=== PATIENT | male | born 1975 | race Caucasian/White ===

== ENCOUNTER 2018-11-03 10:00 | Emergency (ER) | payer MEDICARE, MEDICAID ==
[~2018-11-03] VITALS: Ht 167.6 cm; Wt 80.7 kg
[2018-11-03 10:50] LABS: BASOPHILS % (AUTO) 0.6 % (0.0-2.0); EOSINOPHILS % (AUTO) 1.4 % (0.0-6.0); HEMATOCRIT 42 % (39-51); LYMPHOCYTES # (AUTO) 0.8 /CMM (0.8-4.8); LYMPHOCYTES % (AUTO) 20.6 % (20.0-44.0); MEAN CORPUSCULAR HGB CONC 34 g/dl (31.0-36.0); MEAN CORPUSCULAR VOLUME 87 fL (80-96); MONOCYTES # (AUTO) 0.3 /CMM (0.1-1.30); NEUTROPHILS # (AUTO) 2.6 /CMM (1.8-8.9); NEUTROPHILS % (AUTO) 69.4 % (43.0-81.0); PLATELET COUNT (AUTO) 313 /CMM (150-450); WHITE BLOOD COUNT (AUTO) 3.8 K/uL (4.3-11.0)
[2018-11-03 10:51] LABS: APPEARANCE,URINE Clear (CLEAR); BILIRUBIN,URINE Negative (NEGATIVE); BLOOD, URINE Negative Ery/uL (NEGATIVE); COLOR,URINE Yellow (YELLOW); KETONES,URINE Negative (NEGATIVE); LEUKOCYTE ESTERASE ,URINE Negative (NEGATIVE); NITRITE, URINE Negative (NEGATIVE); PROTEIN,URINE Negative (NEGATIVE); UGLUCOSE Negative (NEGATIVE); UROBILINOGEN,URINE 0.2 EU/dL (0.2)
[2018-11-03 10:59] LABS: CALCIUM, SERUM 9.3 mg/dL (8.5-10.1); CARBON DIOXIDE 27 mmol/L (21-32); CHLORIDE 104 mmol/L (98-107); CREATININE 0.8 mg/dL (0.6-1.3); GLUCOSE 108 mg/dL (74-106); POTASSIUM 3.7 mmol/L (3.5-5.1); SODIUM SERUM 137 mmol/L (136-145); UREA NITROGEN, BLOOD 6 mg/dL (7-18)
[2018-11-03] MEDS ORDERED: IV NS 0.9% 1,000 ML BAG IV ONE (11:00)
--- NOTE | 2018-11-03 11:00 | NUR ---
patient presented to the ER OD on CBD, alert and oriented, verbally responsive. On room air, breathing evenly and unlabored. Connected to the monitor and pulse ox. kept comfortable, will continue to monitor accordingly.
[2018-11-03 11:03] LABS: ALANINE AMINOTRANSFERASE 18 U/L (12-78); ALBUMIN 3.5 g/dL (3.4-5.0); ALCOHOL, BLOOD < 3 mg/dL (0-0); ALKALINE PHOSPHATASE 105 U/L (46-116); ASPARTATE AMINOTRANSFERASE 17 U/L (15-37); BILIRUBIN,DIRECT 0.1 mg/dL (0.0-0.2); BILIRUBIN,TOTAL 0.6 mg/dL (0.2-1.0); TOTAL PROTEIN, SERUM 6.9 g/dL (6.4-8.2)
[2018-11-03 11:04] LABS: ACETAMINOPHEN 0 ug/ml (10-30); SALICYLATE 0.2 mg/dL (2.8-20.0)
[2018-11-03 11:25] VITALS: BP 122/100
[2018-11-03] MEDS ORDERED: LORA2TAB PO (11:31)
[2018-11-03] MEDS ORDERED: PANT40TA4 PO (11:31)
[2018-11-03] MEDS ORDERED: CLON0.2T PO (11:31)
[2018-11-03] MEDS ORDERED: ZOLP10TA6 PO (11:32)
[2018-11-03] MEDS ORDERED: METO100T14 PO (11:32)
--- NOTE | 2018-11-03 11:48 | NUR ---
SHERRI TRAMMELL NP ON-CALL. AWAITING FOR CALL BACK.
--- NOTE | 2018-11-03 12:24 | NUR ---
patient eloped, removed his IV access. Patient very coherent and aware why his here in the hospital. Informed Dr. Ross and made aware. Nursing supervisor pipeline maintenance aware also. Juanjose Bill TYPESETTER PERFORATOR OPERATOR on site to see the patient but not in the room and eloped. Patient verbally responsive and able to make all needs known.
== END 2018-11-03 12:23 | disposition left against medical advice (07) ==
LOC: ER 10:02
DX: T40.7X1A Poisoning by cannabis (derivatives), accidental (unintentional), initial encounter (principal); G93.40 Encephalopathy, unspecified; R41.82 Altered mental status, unspecified; F29 Unspecified psychosis not due to a substance or known physiological condition; G47.00 Insomnia, unspecified; F84.5 Asperger's syndrome; F10.10 Alcohol abuse, uncomplicated; F12.10 Cannabis abuse, uncomplicated; Y90.0 Blood alcohol level of less than 20 mg/100 ml; Y92.89 Other specified places as the place of occurrence of the external cause
CPT/HCPCS: 36415; 80048; 80076; 80305; 80307; 80329; 81001; 84484; 85025; 93005; 96360; 99285; G0480; J7030; 81000-TC

== ENCOUNTER 2018-11-03 13:45 | Emergency (ER) | payer MEDICARE, MEDICAID ==
[~2018-11-03] VITALS: Ht 167.6 cm; Wt 80.7 kg
[~2018-11-03 13:45] MED LIST: CLON0.2T PO; LORA2TAB PO; METO100T14 PO; PANT40TA4 PO; ZOLP10TA6 PO
--- NOTE | 2018-11-03 14:30 | NUR ---
patient presented to the ER, was here earlier and eloped, from home father called paramedics again and patient is on hold, On room air, breathing evenly and unalbored. Connected to the monitor and pulse ox. kept comfortable, will continue to monitor accordingly.
--- NOTE | 2018-11-03 14:44 | NUR ---
CALLED AND SPOKE TO CAMILLE DOBBINS. DANNY 1HR.
[2018-11-03 19:20] VITALS: BP 125/81
--- NOTE | 2018-11-03 19:22 | NUR ---
Patient discharged to home in stable condition. Written and verbal after care instructions given. Patient verbalizes understanding of instruction.
== END 2018-11-03 19:21 | disposition home or self-care (01) ==
LOC: ER 13:50
DX: T42.4X1A Poisoning by benzodiazepines, accidental (unintentional), initial encounter (principal); T40.7X1A Poisoning by cannabis (derivatives), accidental (unintentional), initial encounter; F29 Unspecified psychosis not due to a substance or known physiological condition; F84.5 Asperger's syndrome; F10.10 Alcohol abuse, uncomplicated; R47.81 Slurred speech; F32.9 Major depressive disorder, single episode, unspecified; Y90.9 Presence of alcohol in blood, level not specified; Y92.89 Other specified places as the place of occurrence of the external cause

== ENCOUNTER 2019-05-13 23:39 | Inpatient (IN) | payer MEDICARE, MEDICAID ==
[~2019-05-13] VITALS: Ht 167.6 cm; Wt 79.8 kg
--- NOTE | 2019-05-13 23:39 | NUR ---
TO BED 15 BIB EMS C/O AMBIEN AND SEROQUEL OVERDOSE, UNKNOWN AMOUNT. PT RESTLESS, SPITTING, UNCOOPERATIVE, SCREAMING. P;RONNI PT ON CARDIAC MONITORING, CONTINUOUS POX. PENDING ER MD SAUCEDA.
--- NOTE | 2019-05-13 23:42 | NUR ---
ER MD AT BEDSIDE TO EVAL PT WITH ORDERS RECEIVED. WILL CARRY OUT ORDERS.
[2019-05-13] MEDS ORDERED: SODIUM BICARBONATE SYR 50 MEQ/50 ML DISP.SYRIN ONE (23:58)
[2019-05-13] MEDS ORDERED: LORAZEPAM INJ 2 MG/ML VIAL ONE (23:58)
[2019-05-14] MEDS ORDERED: IV NS 0.9% 1,000 ML BAG IV ONE
[2019-05-14] MEDS ORDERED: SODIUM BICARBONATE SYR 50 MEQ/50 ML DISP.SYRIN IV ONE
[2019-05-14] MEDS ORDERED: LORAZEPAM INJ 2 MG/ML VIAL IVP ONE
[2019-05-14 00:08] LABS: BASOPHILS % (AUTO) 0.6 % (0.0-2.0); HEMATOCRIT 40 % (39-51); HEMOGLOBIN 13.6 g/dL (13.5-17.5); LYMPHOCYTES # (AUTO) 0.8 /CMM (0.8-4.8); LYMPHOCYTES % (AUTO) 9.7 % (20.0-44.0); MEAN CORPUSCULAR HGB CONC 34 g/dl (31.0-36.0); MEAN CORPUSCULAR VOLUME 89 fL (80-96); MONOCYTES # (AUTO) 0.6 /CMM (0.1-1.30); MONOCYTES % (AUTO) 7.5 % (2.0-12.0); NEUTROPHILS # (AUTO) 6.3 /CMM (1.8-8.9); NEUTROPHILS % (AUTO) 81.2 % (43.0-81.0); PLATELET COUNT (AUTO) 310 /CMM (150-450); WHITE BLOOD COUNT (AUTO) 7.8 K/uL (4.3-11.0)
--- NOTE | 2019-05-14 00:08 | NUR ---
PT MEDICATED ORDERED.
[2019-05-14 00:16] LABS: CARBON DIOXIDE 27 mmol/L (21-32); CHLORIDE 108 mmol/L (98-107); CREATININE 0.9 mg/dL (0.6-1.3); GLUCOSE 113 mg/dL (74-106); POTASSIUM 3.4 mmol/L (3.5-5.1); SODIUM SERUM 143 mmol/L (136-145); UREA NITROGEN, BLOOD 9 mg/dL (7-18)
[2019-05-14 00:22] LABS: ALANINE AMINOTRANSFERASE 15 U/L (12-78); ALBUMIN 3.6 g/dL (3.4-5.0); ALCOHOL, BLOOD < 3 mg/dL (0-0); ALKALINE PHOSPHATASE 110 U/L (46-116); ASPARTATE AMINOTRANSFERASE 12 U/L (15-37); BILIRUBIN,DIRECT 0.1 mg/dL (0.0-0.2); BILIRUBIN,TOTAL 0.5 mg/dL (0.2-1.0); TOTAL PROTEIN, SERUM 6.9 g/dL (6.4-8.2)
[2019-05-14 00:23] LABS: ACETAMINOPHEN 0 ug/ml (10-30); SALICYLATE 0.8 mg/dL (2.8-20.0)
[2019-05-14] MEDS ORDERED: LORAZEPAM INJ 2 MG/ML VIAL ONE ×3 (00:24→07:21)
[2019-05-14] MEDS ORDERED: IV NS 0.9% 1,000 ML IV PRN (02:19)
[2019-05-14] MEDS ORDERED: MAGNESIUM HYDROXIDE 30 ML UDC PO PRN (02:30)
[2019-05-14] MEDS ORDERED: MAG HYDROX/AL HYDROX/SIMETH 30 ML UDC PO PRN (02:30)
[2019-05-14] MEDS ORDERED: HYDROCODONE/APAP 5/325MG 1 EACH TABLET PO PRN (02:30)
[2019-05-14] MEDS ORDERED: ACETAMINOPHEN 325 MG TABLET PO PRN (02:30)
[2019-05-14] MEDS ORDERED: ONDANSETRON HCL/PF 4 MG/2 ML VIAL IVP PRN (02:30)
[2019-05-14] MEDS ORDERED: Z GUARD REMEDY 2 OZ OINT TP PRN (02:30)
[2019-05-14] MEDS ORDERED: LORAZEPAM INJ 2 MG/ML VIAL IV ONE ×3 (03:00→22:30)
[2019-05-14] MEDS ORDERED: HALOPERIDOL LACTATE INJ 5 MG/ML VIAL ONE (07:21)
[2019-05-14] MEDS: LORAZEPAM INJ 2 MG/ML VIAL IV PRN ×2 (07:24→15:46)
[2019-05-14] MEDS ORDERED: HALOPERIDOL LACTATE INJ 5 MG/ML VIAL IV ONE (07:30)
[2019-05-14] MEDS ORDERED: QUET400T53 PO (09:36)
--- NOTE | 2019-05-14 09:46 | NUR ---
REPORT GIVEN TO BE ARCOS FOR MARTINA.
--- NOTE | 2019-05-14 10:15 | NUR ---
TRANSFERRED TO ROOM 117 VIA ACLS PROTOCOL. PATIENT IN NO DISTRESS NOTED.
--- NOTE | 2019-05-14 10:30 | NUR ---
CAR MOVER NOTE PATIENT DROWSY POSSILBY DUE TO MEDICATION ADMINISTRATION IN ER. CRIME SCENE TECHNICIAN SITTER AT BEDSIDE FOR SAFETY. PATIENT IS AWAKE AND RESPONSIVE. ATE BREAKFAST, STATED ALLERGY TO MILK. RN ASSESS PATIETN, SIDE RAILS UP. PATIENT HAS BELONGINGS GIVEN TO HIM FROM ER, PATIENT REFUSED TO GIVE THEM TO RN, HAS AT BEDSIDE. VITALS AND LABS STABLE. MD AWARE OF TRANSFER TO UNIT. NEW ORDERS IN COMPUTER. PSYC CONSULT WITH MD GARCIA WAS CALLED INTO DR, HE IS AWARE OF PATIENT ON UNIT STATED HE WILL SEE HIM TOMORROW 05/15. ALL NEEDS MET AT THIS TIME, PATIENT ON MONITOR NORMAL SINUS RHYTHM. MONITOR FOR SAFETY REINFORCE SAFETY TO CRIME SCENE TECHNICIAN.
--- NOTE | 2019-05-14 12:14 | NUR ---
RN NOTE PSYCH CONSULT [facility] STATED HE WILL COME TOMORROW 05/15
[2019-05-14 13:00] VITALS: BP 128/72
[2019-05-14] MEDS ORDERED: LORAZEPAM INJ 2 MG/ML VIAL IV PRN (13:30)
[2019-05-14 17:00] VITALS: BP 128/72
--- NOTE | 2019-05-14 18:00 | NUR ---
[facility] GROWER VISIT NOTE DR SANTA CLEARED PATIENT FOR D/C ON PSYCH END. NO NEW ORDERS AT THIS TIME. MEDICAL DOCTOR TO CLEAR PATIENT FROM DISCHARGE FROM FACILITY. RN CONTACTED AWATITING ORDERS.
--- NOTE | 2019-05-14 18:42 | NUR ---
RN CLOSING NOTE PATIENT AWAKE AND ALERT, SEEN BY MD AND PSYCH MD. CLEAR FOR D/C HOME BY PSYCH DOCTOR. AWAITING ORDERS FROM PRIMARY AT THIS TIME. VITALS STABLE VITALS WNL. PATIENT FAMILY AT BEDSIDE. SITTER AT BEDSIDE DURING SHIFT, SAFETY MEASURE IN PLACE.
--- NOTE | 2019-05-14 19:04 | NUR ---
RN D/C NOTE RN SPOKE TO PRIMARY MD ABOUT D/C PATIENT TO HOME. PRIMARY STATED SHE CAN NOT D/C PATIENT UNTIL PSYCHIATRIST RECONCILE THE PSYC MEDICATIONS ON HIS END FIRST. RN CALLED PSYCH DR AND LEFT MESSAGE TO RECONCILE MEDICATIONS SO WE MAY DISCHARGE PATIENT TO HOME. RN WILL ENDORSE TO NIGHT NURSE.
--- NOTE | 2019-05-14 19:25 | NUR ---
TELE/RN NOTES PATIENT IN BED, SLEEPING AT THIS TIME, EASILY AROUSABLE. NO S/S OF ACUTE DISTRESS NOTED, RESPIRATION EVEN AND UNLABORED. NO SOB NOTED. ON ROOM AIR, SATURATING 98%. A/O X2, NO S/S OF PAIN NOTED. ON TELE MONITORING WITH SINUS RHYTHM. . SAFETY MAINTAINED, BED AT THE LOWEST LOCKED POSITION. SITTER AT BED SIDE. CALL LIGHT WITHIN REACH. WILL CONTINUE TO MONITOR PATIENT PER PLAN OF CARE.
[2019-05-14 20:00] VITALS: BP 134/90
--- NOTE | 2019-05-14 20:25 | NUR ---
PATIENT DENIES IV FLUIDS, SAYING " IT MAKE ME PEE ALOT" RISKS AND BENEFITS EXPLAINED. PATIENT STILL DENIED.
[2019-05-14] MEDS ORDERED: METOPROLOL TARTRATE PO SCH (22:00)
--- NOTE | 2019-05-14 22:00 | NUR ---
2199 JAMES SMALLS NOTIFIED THAT PATIENT IS GETTING VERY AGITATED ASKING FOR HIS HOME MEDICATION BENADRYL 50 MG TABLET, HALDOL 10 MG IM AND ATIVAN 2 MG IVP. JAMES SMALLS ONLY ORDER FOR ATIVAN 1 MG IVP X ONE DOSE. NOTIFIED PATIENT OF THE ORDER AND PATIENT BECAME EVEN MORE AGITATED CONT. ASKING FOR HIS HOME MEDICATIONS AND SAYING HE WANTS TO GO HOME. SITTER WITH PATIENT AT ALL TIMES FOR SAFETY. CALLED DR. SANTA AT THIS TIME AND LEFT HIM MESSAGE REGARDING PATIENT'S CONCERN AND BEHAVIOR. AWAITING CALL BACK.
--- NOTE | 2019-05-14 22:25 | NUR ---
PATIENT REFUSED PO ATIVAN AND REQUESTED TO CHANGE ATIVAN TO IV. ORDER OBTAINED FROM [facility]. MEDICATION ADMINISTER ORDERED. PO ATIVAN WASTED WITH CHARGE NURSE.
--- NOTE | 2019-05-14 22:42 | NUR ---
PATIENT CONTINUE TO COME TO NURSING STATION ASKING FOR MORE MEDICATION TO SLEEP, HE IS SAYING THAT ATIVAN IS NOT WORKING. GETTING AGITATED. CALLED [facility] AT THIS TIME WITH NEW ORDER TO GIVE PATIENT AMBIEN 10MG PO. NOTED AND CARRIED OUT.
--- NOTE | 2019-05-14 22:58 | NUR ---
PATIENT CONTINUE TO BE MORE AGITATED, CONTINUE TO ASK ASK FOR BENADRYL AND HALOPERIDOL. CALLED SECURITY AT THIS TIME, ASSISTED PATIENT BACK TO HIS ROOM. SAFETY MAINTAINED. CALLED ENMANUEL , RELAYED HIM THAT PATIENT CONTINUE TO BE MORE AGITATED AND REQUESTING BENADRYL AND HALOPERIDOL, ENMANUEL DENIED TO GIVE ANY MORE MEDICATIONS AND ASKED US TO FOLLOW UP WITH HIS PSYCHIATRIST. STILL WAITING FOR CALL BACK FROM [facility].
[2019-05-14] MEDS ORDERED: ZOLPIDEM TARTRATE 10 MG TABLET PO ONE (23:00)
--- NOTE | 2019-05-14 23:25 | NUR ---
[address] SANTA AGAIN AT THIS TIME AT [phone], AWAITING CALL BACK.
[2019-05-14] MEDS ORDERED: diphenhydrAMINE HCL 50 MG/ML VIAL IM STA (23:39)
--- NOTE | 2019-05-14 23:40 | NUR ---
[address] SANTA REGARDING PATIENT'S AGGRESSIVE BEHAVIOR. AWAITING CALL BACK
--- NOTE | 2019-05-14 23:40 | NUR ---
[address] SANTA 3X AGAIN WITH NO ANSWER. PAGED DR. KITCHEN AT THIS TIME. AWAITING CALL BACK. PT. IS VERY AGITATED WALKING UP AND DOWN THE HALLWAY WITH HIS SITTER. KEEPS INSISTING HE WANTS TO SIGN OUT AMA. EXPLAINED TO HIM THE WE NEED TO ASK PSYCH DOCTOR IF HE CAN LEAVE AGAINST MEDICAL ADVICE BUT PT. IS KEEPS INSISTING HE WANTS TO LEAVE. SAFETY MEASURES OBSERVED AT ALL TIMES. REDIRECTED PT. WITH NO HELP. WILL CONT TO MONITOR CLOSELY.
[2019-05-14] MEDS ORDERED: HALOPERIDOL DECANOATE IM 100 MG/ML AMPUL IM STA (23:41)
--- NOTE | 2019-05-14 23:42 | NUR ---
3056 DR. KITCHEN CALLED BACK AND NOTIFIED HIM OF PATIENT'S BEHAVIOR WITH ORDERS MADE. ORDERS NOTED.
--- NOTE | 2019-05-14 23:45 | NUR ---
DR. SANTA CALLED BACK AND NOTIFIED OF PATIENT AGGRESSIVE BEHAVIOR AND WANTING TO SIGN OUT AMA, HE SAID PATIENT MAY NOT SIGN OUT AMA AND TO GIVE PATIENT SEROQUEL 400MG PO EVERY HS MAY GIVE ONE DOSE NOW. ORDER NOTED.
--- NOTE | 2019-05-14 23:50 | NUR ---
2350 PATIENT NOTIFIED OF DOCTORS' ORDERS AND AGREED TO STAY.
[2019-05-15] VITALS: BP 130/72
[2019-05-15] MEDS ORDERED: QUETIAPINE FUMARATE 100 MG TABLET PO SCH
[2019-05-15] MEDS ORDERED: HALOPERIDOL LACTATE INJ 5 MG/ML VIAL IM ONE ×2 (00:30→13:30)
[2019-05-15 04:00] VITALS: BP 131/65
[2019-05-15] MEDS: LORAZEPAM 1 MG TABLET PO PRN ×2 (04:34→13:07)
--- NOTE | 2019-05-15 07:21 | NUR ---
PATIENT ENDORSE TO AM SHIFT NURSE FOR MARTINA. IN NO ACUTE DISTRESS, SLEEPING COMFORTABLY AT THIS TIME.
--- NOTE | 2019-05-15 07:25 | NUR ---
TELE/RN OPENING NOTES RECEIVED PATIENT IN BED SLEEPING COMFORTABLY. EASILY AROUSABLE. ABLE TO MAKE NEEDS KNOWN. NO PAIN OR ACUTE DISTRESS AT THIS TIME. RESPIRATION EVEN AND UNLABORED. SKIN IS DRY WARM TO TOUCH. 1 ON 1 SITTER AT BEDSIDE AT ALL TIMES. ALL NEEDS ANTICIPATED. CALL LIGHT WITHIN REACHED. SAFETY MAINTAINED. BED LOCKED AND IN LOWEST POSITION. PLAN OF CARE DISCUSSED. WILL CONTINUE TO MONITOR CLOSELY.
[2019-05-15] MEDS ORDERED: QUETIAPINE FUMARATE 400 MG PO SCH (09:00)
[2019-05-15] MEDS ORDERED: diphenhydrAMINE HCL 50 MG/ML VIAL IM ONE (13:30)
--- NOTE | 2019-05-15 14:50 | NUR ---
TELE/RN NOTES PATIENT WAS SEEN AND EVALUATED BY DR. GARCIA. WITH NO NEW ORDERS AT THIS TIME.
[2019-05-15 15:44] LABS: BASOPHILS % (AUTO) 0.3 % (0.0-2.0); EOSINOPHILS % (AUTO) 0.7 % (0.0-6.0); HEMATOCRIT 40 % (39-51); HEMOGLOBIN 13.9 g/dL (13.5-17.5); LYMPHOCYTES # (AUTO) 0.6 /CMM (0.8-4.8); LYMPHOCYTES % (AUTO) 14.3 % (20.0-44.0); MEAN CORPUSCULAR HGB CONC 35 g/dl (31.0-36.0); MEAN CORPUSCULAR VOLUME 87 fL (80-96); MONOCYTES # (AUTO) 0.3 /CMM (0.1-1.30); MONOCYTES % (AUTO) 8.1 % (2.0-12.0); NEUTROPHILS # (AUTO) 3.1 /CMM (1.8-8.9); NEUTROPHILS % (AUTO) 76.6 % (43.0-81.0); PLATELET COUNT (AUTO) 330 /CMM (150-450)
[2019-05-15 15:57] LABS: CALCIUM, SERUM 8.9 mg/dL (8.5-10.1); CREATININE 0.9 mg/dL (0.6-1.3); MAGNESIUM 1.9 mg/dL (1.8-2.4); PHOSPHORUS 2.4 mg/dL (2.5-4.9); POTASSIUM 3.2 mmol/L (3.5-5.1)
[2019-05-15 16:07] LABS: THYROID STIMULATING HORMONE 2.261 uIU/mL (0.358-3.74)
--- NOTE | 2019-05-15 17:04 | NUR ---
Met with patient, he is currently on 5150 hold. States he lives locally with his parents.He is ambulatory and independent with adl's. States he had been in [facility] in the past but currently denies being suicidal or homicidal. He plan to return home, family friend Gui will provide ride when discharge. Addendum: 05/15/19 at 1705 by LISA JEFFERY RN Amended: Links added.
--- NOTE | 2019-05-15 17:40 | NUR ---
TELE/RN NOTES PATIENT WAS SEEN AND EVALUATED BY DR. SANTA. PER DR. SANTA PATIENT IS CLEARED TO GO HOME. WILL CONTACT JAMES FUCHS FOR DISCHARGE ORDERS.
--- NOTE | 2019-05-15 18:38 | NUR ---
TELE/RN NOTES STILL AWAITING DISCHARGE ORDERS FROM J[facility] FUCHS. PATIENT CONTINUES TO REMAIN IN STABLE CONDITION. PROVIDED COMFORT AND SAFETY THROUGHOUT THE SHIFT. 1 ON 1 SITTER AT BEDSIDE AT ALL TIMES. ALL NEEDS ANTICIPATED. CALL LIGHT WITHIN REACHED. BED LOCKED AND IN LOWEST POSITION. WILL CONTINUE TO MONITOR CLOSELY. ENDORSED TO PM NURSE FOR MARTINA.
--- NOTE | 2019-05-15 19:29 | NUR ---
TELE/RN CLOSING NOTES RECEIVED DISCHARGE ORDERS FROM JAMES FUCHS. ENDORSED TO PM NURSE REGARDING DISCHARGE PAPERS AND TEACHING. PATIENT CONTINUES TO REMAIN IN STABLE CONDITION THROUGHOUT THE SHIFT. PROVIDED COMFORT AND SAFETY. WILL CONTINUE TO MONITOR.
--- NOTE | 2019-05-15 20:05 | NUR ---
RN NOTES PATIENT HAS AN ORDER FOR DISCHARGE, PAPER WORK DONE. DISCHARGE TO HOME WITH A FRIEND WHO PICKED PATIENT FROM THE HOSPITAL AND PROVIDED TRANSPO. PATIENT IS IN STABLE CONDITION, VITAL SIGNS WNL. ALERT AND ORIENTED WITH COMPLAINT OF HEADACHE. NORCO GIVEN , WITH HELP. AMBULATORY. VERBALLY ABLE TO COMMUNICATE NEEDS. ALL NEEDS ATTENDED. DISCHARGE PAPER SIGNED AND GIVEN TO PATIENT, COPIED ON FILE.
[2019-05-15] MEDS ORDERED: GUAIFENESIN LA 600 MG TABLET.SA PO SCH (21:00)
== END 2019-05-15 20:05 | disposition home or self-care (01) | DRG 918 ==
LOC: ER 23:40 → TELE1 05-14 02:34 → MEDSG1 05-15 10:34 → TELE1 05-15 10:38
PROVIDERS: ADMIT Registered Nurse; ATTEND Registered Nurse
DX: T43.592A Poisoning by other antipsychotics and neuroleptics, intentional self-harm, initial encounter (principal); F84.5 Asperger's syndrome; Y92.009 Unspecified place in unspecified non-institutional (private) residence as the place of occurrence of the external cause; R40.2142 Coma scale, eyes open, spontaneous, at arrival to emergency department; R40.2242 Coma scale, best verbal response, confused conversation, at arrival to emergency department; R40.2362 Coma scale, best motor response, obeys commands, at arrival to emergency department; E87.6 Hypokalemia; Z91.5 Personal history of self-harm; F39 Unspecified mood [affective] disorder; F10.10 Alcohol abuse, uncomplicated; R94.31 Abnormal electrocardiogram [ECG] [EKG]; F41.1 Generalized anxiety disorder; T42.4X2A Poisoning by benzodiazepines, intentional self-harm, initial encounter; T42.6X2A Poisoning by other antiepileptic and sedative-hypnotic drugs, intentional self-harm, initial encounter; F55.8 Abuse of other non-psychoactive substances
CPT/HCPCS: 36415; 71045-TC; 80048-TC; 80061-TC; 80076-TC; 83735-TC; 84100-TC; 84443-TC; 84484-TC; 85025-TC; 87081-TC; G0378; G0480; J1200; J1630; J1631; J2060; J3490; J7030